=== PATIENT | male | born 1965 | race Asian ===

== ENCOUNTER 2018-04-28 21:38 | Inpatient (IN) | payer MEDICAID ==
[~2018-04-28] VITALS: Ht 180.3 cm; Wt 104.8 kg
[2018-04-28] MEDS ORDERED: PIPERACILLIN/TAZ 3.375G PREMIX 50 ML IV ONE (23:00)
[2018-04-28] MEDS ORDERED: VANCOMYCIN 1 G PREMIX 200 ML IV ONE (23:00)
[2018-04-28 23:32] LABS: HEMATOCRIT. 45.7 % (42.0-52.0); HEMOGLOBIN. 14.9 g/dL (14.0-18.0); MEAN CORPUSCULAR HEMOGLOBIN 27.5 pg (28.0-32.0); MEAN CORPUSCULAR VOLUME 84.7 fL (80.0-94.0); MEAN PLATELET VOLUME 8.9 fl (7.4-10.4); PLATELET 162 x1000/uL (130-400); RED BLOOD CELL COUNT 5.39 mill/uL (4.7-6.1); RED CELL DISTRIBUTION WIDTH 17.8 % (11.6-14.6)
[2018-04-28 23:34] LABS: CHLORIDE 104 mEq/L (98-107)
[2018-04-28 23:36] LABS: INR 1.6; PROTHROMBIN TIME 16.2 sec (9.4-11.6)
[2018-04-28 23:38] LABS: ETHANOL BLOOD < 10 mg/dL
[2018-04-28 23:40] LABS: CLARITY URINE CLOUDY (CLEAR); COLOR URINE ORANGE (YELLOW); KETONES URINE TRACE (NEGATIVE); LEUKOCYTE ESTERASE URINE 1+ (NEGATIVE); NITRITE URINE POSITIVE (NEGATIVE); OCCULT BLOOD URINE 3+ (NEGATIVE); PH URINE 5.5 (4.5-8.0); PROTEIN URINE 4+ (NEGATIVE); SPECIFIC GRAVITY URINE 1.028 (1.005-1.030)
[2018-04-29 00:13] LABS: *AMPHETAMINES SCREEN URINE PRESUMTIVE POSITIVE (NEGATIVE); *BARBITURATES SCREEN URINE NEGATIVE (NEGATIVE); *BENZODIAZEPINES SCREEN URINE NEGATIVE (NEGATIVE)
[2018-04-29 00:14] LABS: METHADONE URINE SCREEN NEGATIVE (NEGATIVE); OPIATES URINE SCREEN NEGATIVE (NEGATIVE); PHENCYCLIDINE URINE SCREEN NEGATIVE (NEGATIVE)
[2018-04-29 00:15] LABS: CANNABINOID URINE SCREEN PRESUMTIVE POSITIVE (NEGATIVE)
[2018-04-29 00:22] LABS: *COCAINE SCREEN URINE NEGATIVE (NEGATIVE)
[2018-04-29 02:03] LABS: PLATELET ESTIMATE NORMAL
[2018-04-29] MEDS: HYDROCODONE/ACETAMINOPHEN 5/325MG TABLET PO PRN (03:27)
[2018-04-29 04:05] VITALS: BP 151/99
[2018-04-29] MEDS ORDERED: IPRATROPIUM/ALBUTEROL 0.5-3(2.5)MG/3ML NEB INH PRN (05:16)
[2018-04-29] MEDS ORDERED: ONDANSETRON HCL 4MG/2ML VIAL IV PRN (05:16)
[2018-04-29] MEDS ORDERED: DEXTROSE 50% WATER 50ML SYRINGE IV PRN (05:30)
[2018-04-29] MEDS ORDERED: PIPERACILLIN/TAZ 3.375G PREMIX 50 ML IV SCH (06:00)
[2018-04-29] MEDS: BLOOD SUGAR DIAGNOSTIC STRIP TEST SCH ×4 (06:44→20:06)
[2018-04-29] MEDS: INSULIN LISPRO 100 UNITS/ML SUBCUT SCH ×4 (06:44→20:17)
[2018-04-29] MEDS: HYDROMORPHONE HCL/PF 2MG/ML CPJ IV PRN ×3 (06:51→20:07)
[2018-04-29 08:00] VITALS: BP 132/90
[2018-04-29] MEDS: AMLODIPINE 10MG TABLET PO SCH (08:48)
[2018-04-29] MEDS: ENOXAPARIN 30MG/0.3ML SYR SUBCUT SCH ×2 (08:49→20:08)
[2018-04-29] MEDS: VANCOMYCIN 1 G PREMIX 200 ML IV SCH ×2 (08:50→20:06)
[2018-04-29] MEDS: ASPIRIN 81MG EC TABLET PO SCH (08:51)
[2018-04-29] MEDS ORDERED: ENOXAPARIN 40MG/0.4ML SYR SUBCUT SCH (09:00)
[2018-04-29 09:08] LABS: CREATINE KINASE MB FRACTION 1.6 ng/mL (0.5-3.6)
[2018-04-29 12:00] VITALS: BP 136/91
[2018-04-29] MEDS: PIPERACILLIN/TAZ 3.375G PREMIX 50 ML IV SCH ×3 (13:31→23:48)
[2018-04-29 15:58] LABS: CREATINE KINASE MB FRACTION 1.2 ng/mL (0.5-3.6)
[2018-04-29 16:00] VITALS: BP 155/98
[2018-04-29 20:00] VITALS: BP 132/85
[2018-04-30] VITALS (7 sets, daily range): BP systolic 133–154; BP diastolic 86–105
[2018-04-30] MEDS: PIPERACILLIN/TAZ 3.375G PREMIX 50 ML IV SCH ×4 (05:18→23:29)
[2018-04-30] MEDS: HYDROMORPHONE HCL/PF 2MG/ML CPJ IV PRN ×4 (05:21→21:31)
[2018-04-30] MEDS: BLOOD SUGAR DIAGNOSTIC STRIP TEST SCH ×4 (06:38→21:21)
[2018-04-30 06:53] LABS: CHLORIDE 102 mEq/L (98-107)
[2018-04-30 06:57] LABS: HEMATOCRIT. 47.2 % (42.0-52.0); HEMOGLOBIN. 15.2 g/dL (14.0-18.0); MEAN CORPUSCULAR HEMOGLOBIN 27.4 pg (28.0-32.0); MEAN CORPUSCULAR VOLUME 85.4 fL (80.0-94.0); MEAN PLATELET VOLUME 9.4 fl (7.4-10.4); PLATELET 146 x1000/uL (130-400); RED BLOOD CELL COUNT 5.53 mill/uL (4.7-6.1); RED CELL DISTRIBUTION WIDTH 18.5 % (11.6-14.6)
[2018-04-30] MEDS: INSULIN LISPRO 100 UNITS/ML SUBCUT SCH ×4 (07:50→21:24)
[2018-04-30] MEDS: VANCOMYCIN 1 G PREMIX 200 ML IV SCH (10:00)
[2018-04-30] MEDS: ASPIRIN 81MG EC TABLET PO SCH (10:00)
[2018-04-30] MEDS: AMLODIPINE 10MG TABLET PO SCH (10:01)
[2018-04-30] MEDS: ENOXAPARIN 30MG/0.3ML SYR SUBCUT SCH ×2 (10:02→21:23)
[2018-04-30 13:04] LABS: PLATELET ESTIMATE NORMAL
[2018-05-01] VITALS: BP 144/85
[2018-05-01 04:00] VITALS: BP 148/93
[2018-05-01] MEDS: PIPERACILLIN/TAZ 3.375G PREMIX 50 ML IV SCH ×3 (05:16→18:55)
[2018-05-01] MEDS: HYDROMORPHONE HCL/PF 2MG/ML CPJ IV PRN ×3 (05:21→17:54)
[2018-05-01] MEDS: VANCOMYCIN 1250MG in DEXTROSE 5% WATER 250ML IV SCH (05:51)
[2018-05-01] MEDS: BLOOD SUGAR DIAGNOSTIC STRIP TEST SCH ×4 (06:33→21:39)
[2018-05-01] MEDS: INSULIN LISPRO 100 UNITS/ML SUBCUT SCH ×4 (07:50→21:00)
[2018-05-01 07:51] VITALS: BP 149/103
[2018-05-01] MEDS: AMLODIPINE 10MG TABLET PO SCH (09:50)
[2018-05-01] MEDS: ENOXAPARIN 30MG/0.3ML SYR SUBCUT SCH ×2 (09:50→21:45)
[2018-05-01] MEDS: ASPIRIN 81MG EC TABLET PO SCH (09:50)
[2018-05-01 11:49] VITALS: BP 146/98
[2018-05-01] MEDS ORDERED: LIDOCAINE HCL/PF 1% 10 MG/ML 5ML VIAL ONE (14:40)
[2018-05-01] MEDS ORDERED: SODIUM BICARBONATE 4% (2.4MEQ) 5ML VIAL IV ONE (14:40)
[2018-05-01 16:38] VITALS: BP 144/103
[2018-05-01 20:00] VITALS: BP 147/91
[2018-05-02] VITALS: BP 151/99
[2018-05-02] MEDS: PIPERACILLIN/TAZ 3.375G PREMIX 50 ML IV SCH ×4 (01:49→17:38)
[2018-05-02] MEDS: VANCOMYCIN 1250MG in DEXTROSE 5% WATER 250ML IV SCH ×2 (01:50→17:39)
[2018-05-02 04:00] VITALS: BP 172/106
[2018-05-02] MEDS: INSULIN LISPRO 100 UNITS/ML SUBCUT SCH ×4 (07:50→21:00)
[2018-05-02] MEDS: BLOOD SUGAR DIAGNOSTIC STRIP TEST SCH ×3 (07:54→21:15)
[2018-05-02 08:00] VITALS: BP 172/106
[2018-05-02] MEDS: ENOXAPARIN 30MG/0.3ML SYR SUBCUT SCH ×2 (09:00→21:17)
[2018-05-02] MEDS: ASPIRIN 81MG EC TABLET PO SCH (09:00)
[2018-05-02] MEDS: AMLODIPINE 10MG TABLET PO SCH (09:09)
[2018-05-02] MEDS: HYDROMORPHONE HCL/PF 2MG/ML CPJ IV PRN (11:13)
[2018-05-02 12:00] VITALS: BP 156/92
[2018-05-02 16:00] VITALS: BP 141/88
[2018-05-02] MEDS: HYDROCODONE/ACETAMINOPHEN 5/325MG TABLET PO PRN (17:48)
[2018-05-02 20:00] VITALS: BP 136/88
[2018-05-03] VITALS: BP 154/100
[2018-05-03] MEDS: PIPERACILLIN/TAZ 3.375G PREMIX 50 ML IV SCH ×5 (00:42→23:06)
[2018-05-03 04:00] VITALS: BP 150/80
[2018-05-03] MEDS: HYDROMORPHONE HCL/PF 2MG/ML CPJ IV PRN ×4 (07:07→23:07)
[2018-05-03] MEDS: INSULIN LISPRO 100 UNITS/ML SUBCUT SCH ×4 (07:35→21:26)
[2018-05-03] MEDS: BLOOD SUGAR DIAGNOSTIC STRIP TEST SCH ×4 (07:35→21:15)
[2018-05-03] MEDS: ASPIRIN 81MG EC TABLET PO SCH (07:40)
[2018-05-03] MEDS: HYDROCODONE/ACETAMINOPHEN 5/325MG TABLET PO PRN (07:41)
[2018-05-03] MEDS: AMLODIPINE 10MG TABLET PO SCH (07:41)
[2018-05-03] MEDS: ENOXAPARIN 30MG/0.3ML SYR SUBCUT SCH ×2 (07:42→21:25)
[2018-05-03 08:00] VITALS: BP 160/100
[2018-05-03 12:00] VITALS: BP 139/87
[2018-05-03] MEDS: VANCOMYCIN 1250MG in DEXTROSE 5% WATER 250ML IV SCH (14:16)
[2018-05-03 16:00] VITALS: BP 134/85
[2018-05-03 20:00] VITALS: BP 144/92
[2018-05-04] VITALS: BP 147/93
[2018-05-04 04:02] VITALS: BP 145/90
[2018-05-04] MEDS: HYDROMORPHONE HCL/PF 2MG/ML CPJ IV PRN ×3 (05:10→15:09)
[2018-05-04] MEDS: PIPERACILLIN/TAZ 3.375G PREMIX 50 ML IV SCH ×2 (05:10→11:55)
[2018-05-04] MEDS: VANCOMYCIN 1250MG in DEXTROSE 5% WATER 250ML IV SCH (06:22)
[2018-05-04] MEDS: BLOOD SUGAR DIAGNOSTIC STRIP TEST SCH ×4 (06:22→20:55)
[2018-05-04] MEDS: DIPHENHYDRAMINE 50MG/ML VIAL IV PRN (07:15)
[2018-05-04 07:21] LABS: HEMATOCRIT. 42.2 % (42.0-52.0); HEMOGLOBIN. 13.8 g/dL (14.0-18.0); MEAN CORPUSCULAR VOLUME 82.8 fL (80.0-94.0); MEAN PLATELET VOLUME 8.9 fl (7.4-10.4); PLATELET 204 x1000/uL (130-400); RED CELL DISTRIBUTION WIDTH 18.2 % (11.6-14.6)
[2018-05-04 07:46] VITALS: BP 146/96
[2018-05-04] MEDS: INSULIN LISPRO 100 UNITS/ML SUBCUT SCH ×4 (07:50→20:55)
[2018-05-04] MEDS: ASPIRIN 81MG EC TABLET PO SCH (08:02)
[2018-05-04] MEDS: AMLODIPINE 10MG TABLET PO SCH (08:02)
[2018-05-04] MEDS: ENOXAPARIN 30MG/0.3ML SYR SUBCUT SCH ×2 (08:03→20:55)
[2018-05-04] MEDS: HYDROMORPHONE HCL/PF 2MG/ML CPJ IV NR ×2 (10:00→11:55)
[2018-05-04 12:00] VITALS: BP 125/81
[2018-05-04 12:47] LABS: PLATELET ESTIMATE NORMAL
[2018-05-04] MEDS ORDERED: CEFTRIAXONE 2 G PREMIX 50 ML IV SCH (15:00)
[2018-05-04] MEDS: CEFTRIAXONE 2 G in DEXTROSE 5% WATER 50 ML IV SCH (15:08)
[2018-05-04 16:12] VITALS: BP 135/90
[2018-05-04 20:00] VITALS: BP 129/80
[2018-05-05] VITALS: BP 147/82
[2018-05-05] MEDS: VANCOMYCIN 1250MG in DEXTROSE 5% WATER 250ML IV SCH ×2 (00:36→17:04)
[2018-05-05] MEDS: HYDROMORPHONE HCL/PF 2MG/ML CPJ IV PRN ×4 (00:39→17:04)
[2018-05-05 04:00] VITALS: BP 144/89
[2018-05-05] MEDS: BLOOD SUGAR DIAGNOSTIC STRIP TEST SCH ×4 (06:24→20:34)
[2018-05-05] MEDS: INSULIN LISPRO 100 UNITS/ML SUBCUT SCH ×4 (07:50→20:34)
[2018-05-05 08:00] VITALS: BP 154/89
[2018-05-05] MEDS: AMLODIPINE 10MG TABLET PO SCH (08:16)
[2018-05-05] MEDS: ENOXAPARIN 30MG/0.3ML SYR SUBCUT SCH ×2 (08:16→20:34)
[2018-05-05] MEDS: ASPIRIN 81MG EC TABLET PO SCH (08:16)
[2018-05-05 10:14] LABS: HEMATOCRIT. 42.6 % (42.0-52.0); HEMOGLOBIN. 13.9 g/dL (14.0-18.0); MEAN CORPUSCULAR HEMOGLOBIN 27.1 pg (28.0-32.0); MEAN CORPUSCULAR VOLUME 82.9 fL (80.0-94.0); MEAN PLATELET VOLUME 9.1 fl (7.4-10.4); PLATELET 233 x1000/uL (130-400); RED BLOOD CELL COUNT 5.14 mill/uL (4.7-6.1); RED CELL DISTRIBUTION WIDTH 18.7 % (11.6-14.6)
[2018-05-05 11:37] VITALS: BP 144/89
[2018-05-05] MEDS: DOCUSATE SODIUM 100MG CAPSULE PO PRN (11:47)
[2018-05-05] MEDS: ACETAMINOPHEN 325MG TABLET PO PRN (11:47)
[2018-05-05] MEDS: CEFTRIAXONE 2 G in DEXTROSE 5% WATER 50 ML IV SCH (16:07)
[2018-05-05 19:05] LABS: PLATELET ESTIMATE NORMAL
[2018-05-05 20:00] VITALS: BP 138/80
[2018-05-05] MEDS: HYDROCODONE/ACETAMINOPHEN 5/325MG TABLET PO PRN (23:09)
[2018-05-06] VITALS: BP 146/82
[2018-05-06] MEDS: HYDROMORPHONE HCL/PF 2MG/ML CPJ IV PRN ×2 (02:46→21:34)
[2018-05-06 04:00] VITALS: BP 150/79
[2018-05-06] MEDS: BLOOD SUGAR DIAGNOSTIC STRIP TEST SCH ×4 (07:25→21:35)
[2018-05-06] MEDS: INSULIN LISPRO 100 UNITS/ML SUBCUT SCH ×4 (07:45→21:35)
[2018-05-06 08:00] VITALS: BP 155/97
[2018-05-06] MEDS: AMLODIPINE 10MG TABLET PO SCH (09:40)
[2018-05-06] MEDS: ASPIRIN 81MG EC TABLET PO SCH (09:40)
[2018-05-06] MEDS: ENOXAPARIN 30MG/0.3ML SYR SUBCUT SCH ×2 (09:40→21:34)
[2018-05-06 12:00] VITALS: BP 151/91
[2018-05-06] MEDS: VANCOMYCIN 1250MG in DEXTROSE 5% WATER 250ML IV SCH (13:05)
[2018-05-06 13:26] LABS: HEMATOCRIT. 42.4 % (42.0-52.0); MEAN CORPUSCULAR HEMOGLOBIN 27.2 pg (28.0-32.0); MEAN CORPUSCULAR VOLUME 82.7 fL (80.0-94.0); MEAN PLATELET VOLUME 8.5 fl (7.4-10.4); PLATELET 246 x1000/uL (130-400); RED BLOOD CELL COUNT 5.13 mill/uL (4.7-6.1); RED CELL DISTRIBUTION WIDTH 17.9 % (11.6-14.6)
[2018-05-06 16:00] VITALS: BP 150/90
[2018-05-06] MEDS: CEFTRIAXONE 2 G in DEXTROSE 5% WATER 50 ML IV SCH (16:18)
[2018-05-06 17:03] LABS: PLATELET ESTIMATE NORMAL
[2018-05-06 19:35] VITALS: BP 149/92
[2018-05-06] MEDS: CLONIDINE 0.1MG TABLET PO PRN (21:34)
[2018-05-07] VITALS: BP 150/88
[2018-05-07] MEDS: ACETAMINOPHEN 325MG TABLET PO PRN (00:53)
[2018-05-07 05:26] VITALS: BP 147/86
[2018-05-07] MEDS: BLOOD SUGAR DIAGNOSTIC STRIP TEST SCH ×4 (06:48→21:57)
[2018-05-07] MEDS: VANCOMYCIN 1250MG in DEXTROSE 5% WATER 250ML IV SCH (06:48)
[2018-05-07] MEDS: HYDROMORPHONE HCL/PF 2MG/ML CPJ IV PRN ×3 (07:11→21:57)
[2018-05-07 07:26] LABS: HEMATOCRIT. 41.3 % (42.0-52.0); HEMOGLOBIN. 13.6 g/dL (14.0-18.0); MEAN CORPUSCULAR HEMOGLOBIN 27.3 pg (28.0-32.0); MEAN CORPUSCULAR VOLUME 82.7 fL (80.0-94.0); MEAN PLATELET VOLUME 8.7 fl (7.4-10.4); PLATELET 294 x1000/uL (130-400); RED BLOOD CELL COUNT 4.99 mill/uL (4.7-6.1); RED CELL DISTRIBUTION WIDTH 17.7 % (11.6-14.6)
[2018-05-07 07:40] VITALS: BP 154/96
[2018-05-07] MEDS: INSULIN LISPRO 100 UNITS/ML SUBCUT SCH ×4 (07:50→21:55)
[2018-05-07] MEDS: ASPIRIN 81MG EC TABLET PO SCH (09:23)
[2018-05-07] MEDS: AMLODIPINE 10MG TABLET PO SCH (09:23)
[2018-05-07] MEDS: ENOXAPARIN 30MG/0.3ML SYR SUBCUT SCH ×2 (09:24→21:57)
[2018-05-07 12:07] VITALS: BP 149/93
[2018-05-07 14:22] LABS: ATYPICAL LYMPHOCYTES 2
[2018-05-07 14:23] LABS: PLATELET ESTIMATE NORMAL
[2018-05-07] MEDS: METRONIDAZOLE 500 MG PREMIX 100 ML IV SCH (14:48)
[2018-05-07 16:00] VITALS: BP 148/93
[2018-05-07] MEDS: CEFTRIAXONE 2 G in DEXTROSE 5% WATER 50 ML IV SCH (16:49)
[2018-05-07 20:30] VITALS: BP 136/79
[2018-05-07] MEDS: VANCOMYCIN 1,500 MG in DEXT 5% WATER 250 ML IV SCH (21:57)
[2018-05-08] MEDS: METRONIDAZOLE 500 MG PREMIX 100 ML IV SCH ×3 (00:01→14:07)
[2018-05-08 00:21] VITALS: BP 142/94
[2018-05-08] MEDS: ACETAMINOPHEN 325MG TABLET PO PRN (01:00)
[2018-05-08] MEDS: CLONIDINE 0.1MG TABLET PO PRN (01:00)
[2018-05-08 04:41] VITALS: BP 137/84
[2018-05-08 05:27] LABS: HIV SCREEN 4G Non Reactive (Non Reactive)
[2018-05-08] MEDS: BLOOD SUGAR DIAGNOSTIC STRIP TEST SCH ×4 (06:20→21:00)
[2018-05-08] MEDS ORDERED: NORMAL SALINE 0.9% 10 ML SYR ONE ×2 (06:36→06:43)
[2018-05-08] MEDS ORDERED: BUPIVACAINE HCL/PF 0.25% (2.5MG/ML) 10ML ONE (06:36)
[2018-05-08] MEDS ORDERED: LIDOCAINE HCL/PF 1% 10 MG/ML 5ML VIAL ONE ×2 (06:36→07:11)
[2018-05-08] MEDS ORDERED: BACITRACIN 50,000 UNITS/VIAL ONE ×2 (06:37→06:43)
[2018-05-08] MEDS ORDERED: MIDAZOLAM HCL 2 MG/2 ML VIAL ONE (07:11)
[2018-05-08] MEDS ORDERED: METOCLOPRAMIDE HCL 10MG/2ML VIAL ONE (07:11)
[2018-05-08] MEDS ORDERED: FENTANYL CITRATE/PF 50MCG/ML 2ML VIAL ONE ×2 (07:11→07:46)
[2018-05-08] MEDS ORDERED: SUCCINYLCHOLINE CHLORIDE 200MG/10ML VIAL IV ONE (07:11)
[2018-05-08] MEDS ORDERED: GLYCOPYRROLATE 0.2 MG/ML 2ML VIAL ONE (07:11)
[2018-05-08] MEDS ORDERED: PROPOFOL 200MG/20ML VIAL IV ONE (07:11)
[2018-05-08] MEDS ORDERED: ONDANSETRON HCL 4MG/2ML VIAL ONE (07:11)
[2018-05-08] MEDS: INSULIN LISPRO 100 UNITS/ML SUBCUT SCH ×4 (07:14→21:00)
[2018-05-08] MEDS ORDERED: SODIUM CHLORIDE 0.9% 1,000 ML IV ONE (08:16)
[2018-05-08] MEDS ORDERED: BUPIVACAINE HCL/EPINEPHRINE/PF 0.5%/0.0005 10ML ONE (08:18)
[2018-05-08] MEDS ORDERED: HYDROMORPHONE HCL/PF 2MG/ML CPJ IV PRN (08:30)
[2018-05-08] MEDS ORDERED: ONDANSETRON HCL 4MG/2ML VIAL IV PRN (08:30)
[2018-05-08] MEDS: ENOXAPARIN 30MG/0.3ML SYR SUBCUT SCH ×2 (09:00→20:29)
[2018-05-08] MEDS: AMLODIPINE 10MG TABLET PO SCH ×2 (09:00→12:13)
[2018-05-08] MEDS: ASPIRIN 81MG EC TABLET PO SCH (09:00)
[2018-05-08 11:24] VITALS: BP 154/98
[2018-05-08] MEDS: HYDROMORPHONE HCL/PF 2MG/ML CPJ IV PRN (14:31)
[2018-05-08] MEDS: CEFTRIAXONE 2 G in DEXTROSE 5% WATER 50 ML IV SCH (15:18)
[2018-05-08] MEDS: VANCOMYCIN 1,500 MG in DEXT 5% WATER 250 ML IV SCH (15:56)
[2018-05-08 15:57] VITALS: BP 136/83
[2018-05-08 17:35] LABS: BASOPHILS % 0.6 % (0.0-2.0); EOSINOPHILS % 0.3 % (0.0-5.0); HEMATOCRIT. 38.7 % (42.0-52.0); HEMOGLOBIN. 12.7 g/dL (14.0-18.0); LYMPHOCYTES % 8.2 % (20.0-50.0); MEAN CORPUSCULAR HEMOGLOBIN 27.4 pg (28.0-32.0); MEAN CORPUSCULAR VOLUME 83.4 fL (80.0-94.0); MEAN PLATELET VOLUME 8.4 fl (7.4-10.4); MONOCYTES % 7.4 % (2.0-8.0); NEUTROPHILS % 83.5 % (40.0-76.0); PLATELET 339 x1000/uL (130-400); RED BLOOD CELL COUNT 4.64 mill/uL (4.7-6.1); RED CELL DISTRIBUTION WIDTH 17.9 % (11.6-14.6)
[2018-05-08 19:31] VITALS: BP 122/75
[2018-05-08] MEDS: HYDROCODONE/ACETAMINOPHEN 5/325MG TABLET PO PRN (23:42)
[2018-05-09] MEDS: METRONIDAZOLE 500 MG PREMIX 100 ML IV SCH ×4 (00:07→22:43)
[2018-05-09 00:15] VITALS: BP 129/81
[2018-05-09 04:00] VITALS: BP 130/83
[2018-05-09 07:08] LABS: BASOPHILS % 0.6 % (0.0-2.0); EOSINOPHILS % 0.3 % (0.0-5.0); HEMATOCRIT. 38.8 % (42.0-52.0); HEMOGLOBIN. 12.7 g/dL (14.0-18.0); LYMPHOCYTES % 7.5 % (20.0-50.0); MEAN CORPUSCULAR HEMOGLOBIN 27.4 pg (28.0-32.0); MEAN CORPUSCULAR VOLUME 83.6 fL (80.0-94.0); MEAN PLATELET VOLUME 8.4 fl (7.4-10.4); MONOCYTES % 6.9 % (2.0-8.0); NEUTROPHILS % 84.7 % (40.0-76.0); PLATELET 357 x1000/uL (130-400); RED BLOOD CELL COUNT 4.64 mill/uL (4.7-6.1); RED CELL DISTRIBUTION WIDTH 17.8 % (11.6-14.6)
[2018-05-09] MEDS: BLOOD SUGAR DIAGNOSTIC STRIP TEST SCH ×4 (07:20→21:00)
[2018-05-09] MEDS: INSULIN LISPRO 100 UNITS/ML SUBCUT SCH ×4 (07:50→21:00)
[2018-05-09 08:00] VITALS: BP_SYST 156; BP_DIAS 101; BP_DIAS 95
[2018-05-09] MEDS: AMLODIPINE 10MG TABLET PO SCH (09:39)
[2018-05-09] MEDS: ASPIRIN 81MG EC TABLET PO SCH (09:39)
[2018-05-09] MEDS: DOCUSATE SODIUM 100MG CAPSULE PO PRN ×2 (09:40→18:16)
[2018-05-09] MEDS: HYDROCODONE/ACETAMINOPHEN 5/325MG TABLET PO PRN ×2 (09:41→18:16)
[2018-05-09] MEDS: VANCOMYCIN 1,500 MG in DEXT 5% WATER 250 ML IV SCH (09:42)
[2018-05-09] MEDS: ENOXAPARIN 30MG/0.3ML SYR SUBCUT SCH ×2 (09:46→21:00)
[2018-05-09] MEDS ORDERED: HYDROMORPHONE HCL 2MG TABLET PO PRN (12:45)
[2018-05-09 12:49] VITALS: BP 134/87
[2018-05-09] MEDS ORDERED: HYDROMORPHONE HCL/PF 2MG/ML CPJ IV PRN ×2 (13:00→13:34)
[2018-05-09] MEDS: HYDROMORPHONE HCL/PF 2MG/ML CPJ IV PRN (13:48)
[2018-05-09] MEDS: CEFTRIAXONE 2 G in DEXTROSE 5% WATER 50 ML IV SCH (15:22)
[2018-05-09 16:00] VITALS: BP 136/94
[2018-05-09 20:00] VITALS: BP 141/76
[2018-05-09] MEDS: NYSTATIN POWDER 15GM TOP SCH (21:00)
[2018-05-10] VITALS: BP 135/81
[2018-05-10] MEDS: VANCOMYCIN 1,500 MG in DEXT 5% WATER 250 ML IV SCH (03:27)
[2018-05-10 04:00] VITALS: BP 151/83
[2018-05-10] MEDS: MORPHINE SULFATE 4 MG/ML CPJ (NOT FOR IM USE) IV PRN (04:43)
[2018-05-10] MEDS: METRONIDAZOLE 500 MG PREMIX 100 ML IV SCH ×3 (06:06→23:23)
[2018-05-10] MEDS: BLOOD SUGAR DIAGNOSTIC STRIP TEST SCH ×4 (06:43→21:22)
[2018-05-10] MEDS: INSULIN LISPRO 100 UNITS/ML SUBCUT SCH ×4 (06:44→21:22)
[2018-05-10 08:00] VITALS: BP 135/84
[2018-05-10] MEDS: ASPIRIN 81MG EC TABLET PO SCH (09:14)
[2018-05-10] MEDS: AMLODIPINE 10MG TABLET PO SCH (09:14)
[2018-05-10] MEDS: NYSTATIN POWDER 15GM TOP SCH ×2 (09:15→21:23)
[2018-05-10] MEDS: ENOXAPARIN 30MG/0.3ML SYR SUBCUT SCH ×2 (09:15→21:22)
[2018-05-10 12:00] VITALS: BP 139/84
[2018-05-10] MEDS: DOCUSATE SODIUM 100MG CAPSULE PO PRN (13:38)
[2018-05-10] MEDS: CEFTRIAXONE 2 G in DEXTROSE 5% WATER 50 ML IV SCH (15:19)
[2018-05-10 16:00] VITALS: BP 145/84
[2018-05-10] MEDS: HYDROCODONE/ACETAMINOPHEN 5/325MG TABLET PO PRN (17:15)
[2018-05-10 20:12] VITALS: BP 132/77
[2018-05-10] MEDS: VANCOMYCIN 1,750 MG in DEXT 5% WATER 500 ML IV SCH (21:22)
[2018-05-11] VITALS (7 sets, daily range): BP systolic 127–168; BP diastolic 75–89
[2018-05-11] MEDS: METRONIDAZOLE 500 MG PREMIX 100 ML IV SCH ×3 (06:05→21:45)
[2018-05-11] MEDS: INSULIN LISPRO 100 UNITS/ML SUBCUT SCH ×4 (07:50→21:57)
[2018-05-11] MEDS: BLOOD SUGAR DIAGNOSTIC STRIP TEST SCH ×4 (07:52→21:57)
[2018-05-11] MEDS: AMLODIPINE 10MG TABLET PO SCH (08:23)
[2018-05-11] MEDS: ASPIRIN 81MG EC TABLET PO SCH (08:23)
[2018-05-11] MEDS: NYSTATIN POWDER 15GM TOP SCH ×2 (08:24→21:45)
[2018-05-11] MEDS: ENOXAPARIN 30MG/0.3ML SYR SUBCUT SCH ×2 (08:26→21:45)
[2018-05-11] MEDS: MORPHINE SULFATE 4 MG/ML CPJ (NOT FOR IM USE) IV PRN (10:07)
[2018-05-11 13:18] LABS: BASOPHILS % 0.4 % (0.0-2.0); EOSINOPHILS % 0.2 % (0.0-5.0); HEMATOCRIT. 33.6 % (42.0-52.0); HEMOGLOBIN. 11.2 g/dL (14.0-18.0); LYMPHOCYTES % 7.3 % (20.0-50.0); MEAN CORPUSCULAR HEMOGLOBIN 27.9 pg (28.0-32.0); MEAN CORPUSCULAR VOLUME 83.6 fL (80.0-94.0); MEAN PLATELET VOLUME 8.2 fl (7.4-10.4); MONOCYTES % 7.6 % (2.0-8.0); NEUTROPHILS % 84.5 % (40.0-76.0); PLATELET 484 x1000/uL (130-400); RED BLOOD CELL COUNT 4.02 mill/uL (4.7-6.1); RED CELL DISTRIBUTION WIDTH 18.3 % (11.6-14.6)
[2018-05-11] MEDS: CEFTRIAXONE 2 G in DEXTROSE 5% WATER 50 ML IV SCH (16:25)
[2018-05-11] MEDS: VANCOMYCIN 1,750 MG in DEXT 5% WATER 500 ML IV SCH (17:08)
[2018-05-11] MEDS: HYDROCODONE/ACETAMINOPHEN 5/325MG TABLET PO PRN (17:15)
[2018-05-11] MEDS: ACETAMINOPHEN 325MG TABLET PO PRN (23:55)
[2018-05-12] MEDS: CLONIDINE 0.1MG TABLET PO PRN
[2018-05-12 04:33] VITALS: BP 139/81
[2018-05-12] MEDS: METRONIDAZOLE 500 MG PREMIX 100 ML IV SCH ×3 (05:59→22:49)
[2018-05-12] MEDS: BLOOD SUGAR DIAGNOSTIC STRIP TEST SCH ×4 (06:40→21:34)
[2018-05-12] MEDS: INSULIN LISPRO 100 UNITS/ML SUBCUT SCH ×4 (07:42→21:34)
[2018-05-12 07:51] VITALS: BP 149/81
[2018-05-12] MEDS: AMLODIPINE 10MG TABLET PO SCH (09:25)
[2018-05-12] MEDS: ASPIRIN 81MG EC TABLET PO SCH (09:25)
[2018-05-12] MEDS: VANCOMYCIN 1,750 MG in DEXT 5% WATER 500 ML IV SCH (09:25)
[2018-05-12] MEDS: MORPHINE SULFATE 4 MG/ML CPJ (NOT FOR IM USE) IV PRN ×2 (09:26→15:30)
[2018-05-12] MEDS: NYSTATIN POWDER 15GM TOP SCH ×2 (09:27→20:46)
[2018-05-12] MEDS: ENOXAPARIN 30MG/0.3ML SYR SUBCUT SCH ×2 (09:27→20:46)
[2018-05-12] MEDS: DIPHENHYDRAMINE 50MG/ML VIAL IV PRN (12:41)
[2018-05-12] MEDS ORDERED: CEFTRIAXONE 2 G in DEXTROSE 5% WATER 50 ML IV SCH (14:00)
[2018-05-12] MEDS: CEFTRIAXONE 2 G in DEXTROSE 5% WATER 50 ML IV SCH (14:09)
[2018-05-12 16:12] VITALS: BP 117/72
[2018-05-12 19:46] VITALS: BP 116/70
[2018-05-12] MEDS: ACETAMINOPHEN 325MG TABLET PO PRN (20:47)
[2018-05-12 23:21] VITALS: BP 144/80
[2018-05-13] MEDS: VANCOMYCIN 1,750 MG in DEXT 5% WATER 500 ML IV SCH ×2 (02:56→18:05)
[2018-05-13 04:19] VITALS: BP 139/87
[2018-05-13] MEDS: METRONIDAZOLE 500 MG PREMIX 100 ML IV SCH ×3 (06:23→21:14)
[2018-05-13] MEDS: BLOOD SUGAR DIAGNOSTIC STRIP TEST SCH ×4 (06:41→21:00)
[2018-05-13] MEDS: INSULIN LISPRO 100 UNITS/ML SUBCUT SCH ×4 (07:50→22:19)
[2018-05-13 08:00] VITALS: BP 132/86
[2018-05-13] MEDS: MORPHINE SULFATE 4 MG/ML CPJ (NOT FOR IM USE) IV PRN ×2 (09:16→18:13)
[2018-05-13] MEDS: NYSTATIN POWDER 15GM TOP SCH ×2 (09:16→21:14)
[2018-05-13] MEDS: ASPIRIN 81MG EC TABLET PO SCH (09:17)
[2018-05-13] MEDS: ENOXAPARIN 30MG/0.3ML SYR SUBCUT SCH ×2 (09:17→21:14)
[2018-05-13] MEDS: AMLODIPINE 10MG TABLET PO SCH (09:17)
[2018-05-13 10:05] LABS: BASOPHILS % 0.7 % (0.0-2.0); EOSINOPHILS % 0.2 % (0.0-5.0); HEMATOCRIT. 32.9 % (42.0-52.0); HEMOGLOBIN. 10.9 g/dL (14.0-18.0); LYMPHOCYTES % 7.1 % (20.0-50.0); MEAN CORPUSCULAR HEMOGLOBIN 27.7 pg (28.0-32.0); MEAN CORPUSCULAR VOLUME 83.6 fL (80.0-94.0); MEAN PLATELET VOLUME 8.2 fl (7.4-10.4); MONOCYTES % 7.4 % (2.0-8.0); NEUTROPHILS % 84.6 % (40.0-76.0); PLATELET 546 x1000/uL (130-400); RED BLOOD CELL COUNT 3.93 mill/uL (4.7-6.1); RED CELL DISTRIBUTION WIDTH 18.4 % (11.6-14.6)
[2018-05-13 12:00] VITALS: BP 136/80
[2018-05-13 14:22] LABS: CHLORIDE 96 mEq/L (98-107)
[2018-05-13] MEDS: CEFTRIAXONE 2 G in DEXTROSE 5% WATER 50 ML IV SCH (15:19)
[2018-05-13 16:00] VITALS: BP 115/71
[2018-05-13 20:00] VITALS: BP 125/79
[2018-05-13] MEDS ORDERED: POTASSIUM CHLORIDE 20MEQ TABLET SR PO NR (21:55)
[2018-05-14] VITALS: BP 133/83
[2018-05-14 04:00] VITALS: BP 141/93
[2018-05-14] MEDS: BLOOD SUGAR DIAGNOSTIC STRIP TEST SCH ×3 (06:21→17:20)
[2018-05-14] MEDS: METRONIDAZOLE 500 MG PREMIX 100 ML IV SCH ×2 (06:21→14:23)
[2018-05-14] MEDS: INSULIN LISPRO 100 UNITS/ML SUBCUT SCH ×3 (07:45→19:12)
[2018-05-14 08:00] VITALS: BP 156/93
[2018-05-14] MEDS: AMLODIPINE 10MG TABLET PO SCH (08:39)
[2018-05-14] MEDS: ASPIRIN 81MG EC TABLET PO SCH (08:39)
[2018-05-14] MEDS: MORPHINE SULFATE 4 MG/ML CPJ (NOT FOR IM USE) IV PRN ×2 (08:40→13:37)
[2018-05-14] MEDS: ENOXAPARIN 30MG/0.3ML SYR SUBCUT SCH (08:41)
[2018-05-14] MEDS: NYSTATIN POWDER 15GM TOP SCH (08:41)
[2018-05-14 11:43] LABS: BASOPHILS % 0.9 % (0.0-2.0); EOSINOPHILS % 0.8 % (0.0-5.0); HEMATOCRIT. 32.2 % (42.0-52.0); HEMOGLOBIN. 10.5 g/dL (14.0-18.0); LYMPHOCYTES % 7.5 % (20.0-50.0); MEAN CORPUSCULAR HEMOGLOBIN 27.4 pg (28.0-32.0); MEAN CORPUSCULAR VOLUME 84.1 fL (80.0-94.0); MEAN PLATELET VOLUME 8.2 fl (7.4-10.4); MONOCYTES % 7.9 % (2.0-8.0); NEUTROPHILS % 82.9 % (40.0-76.0); PLATELET 527 x1000/uL (130-400); RED BLOOD CELL COUNT 3.83 mill/uL (4.7-6.1); RED CELL DISTRIBUTION WIDTH 18.1 % (11.6-14.6)
[2018-05-14 12:47] VITALS: BP 143/89
[2018-05-14] MEDS: VANCOMYCIN 1,750 MG in DEXT 5% WATER 500 ML IV SCH (12:54)
[2018-05-14] MEDS: CEFTRIAXONE 2 G in DEXTROSE 5% WATER 50 ML IV SCH (14:00)
[2018-05-14 16:00] VITALS: BP 146/88
[2018-05-14] MEDS: ACETAMINOPHEN 325MG TABLET PO PRN (18:56)
[2018-05-14 19:29] VITALS: BP 132/77
== END 2018-05-14 20:50 | DRG 710 ==
LOC: ER 21:38 → SUPCPDRO 04-29 00:38 → 6WST 04-29 00:46 → ENRESERV 04-29 03:06
PROVIDERS: ADMIT Hospitalist; ATTEND Hospitalist
PROC: 02HV33Z Insertion of Infusion Device into Superior Vena Cava, Percutaneous Approach (ICD-10-PCS; 2018-05-01)
PROC: B5181ZA Fluoroscopy of Superior Vena Cava using Low Osmolar Contrast, Guidance (ICD-10-PCS; 2018-05-01)
PROC: B548ZZA Ultrasonography of Superior Vena Cava, Guidance (ICD-10-PCS; 2018-05-01)
PROC: 0QDR0ZZ Extraction of Left Toe Phalanx, Open Approach (ICD-10-PCS; 2018-05-01)
PROC: 0QDP0ZZ Extraction of Left Metatarsal, Open Approach (ICD-10-PCS; 2018-05-01)
PROC: 0JBR0ZZ Excision of Left Foot Subcutaneous Tissue and Fascia, Open Approach (ICD-10-PCS; 2018-05-04)
PROC: 0Y6N0Z9 Detachment at Left Foot, Partial 1st Ray, Open Approach (ICD-10-PCS; principal; 2018-05-08 07:00)
DX: A41.02 Sepsis due to Methicillin resistant Staphylococcus aureus (principal); E43 Unspecified severe protein-calorie malnutrition; N17.9 Acute kidney failure, unspecified; A04.72 Enterocolitis due to Clostridium difficile, not specified as recurrent; I50.9 Heart failure, unspecified; I11.0 Hypertensive heart disease with heart failure; E11.52 Type 2 diabetes mellitus with diabetic peripheral angiopathy with gangrene; E11.42 Type 2 diabetes mellitus with diabetic polyneuropathy; E11.69 Type 2 diabetes mellitus with other specified complication; N39.0 Urinary tract infection, site not specified; F15.10 Other stimulant abuse, uncomplicated; I25.10 Atherosclerotic heart disease of native coronary artery without angina pectoris; E11.621 Type 2 diabetes mellitus with foot ulcer; D63.8 Anemia in other chronic diseases classified elsewhere; F17.200 Nicotine dependence, unspecified, uncomplicated; I34.0 Nonrheumatic mitral (valve) insufficiency; I45.81 Long QT syndrome; L97.529 Non-pressure chronic ulcer of other part of left foot with unspecified severity; M86.8X7 Other osteomyelitis, ankle and foot; Z83.3 Family history of diabetes mellitus; Z79.4 Long term (current) use of insulin; Z89.511 Acquired absence of right leg below knee
CPT/HCPCS: 36415; 36569; 71045; 73610; 73630; 73721; 76937; 77001; 80048; 80053; 80202; 80305; 81003; 82550; 82553; 82962; 83605; 83690; 83880; 84145; 84484; 85025; 85610; 85651; 86140; 87040; 87070; 87075; 87077; 87086; 87186; 87205; 88305; 88311; 93005; 93306; 93923; 93971; 96365; 96366; 96367; 97110; 97162; 97164; 97530; 97535; 99291; A4216; C1725; G0482; J0171; J0330; J0696; J1170; J1200; J1650; J1815; J2250; J2270; J2405; J2543; J2704; J2765; J3010; J3370; J3490; J7040; J7050; J7060

== ENCOUNTER 2019-01-12 12:24 | Inpatient (IN) | payer SELFPAY ==
[~2019-01-12] VITALS: Ht 180.3 cm; Wt 113.9 kg
[2019-01-12 19:37] LABS: BASOPHILS % 1.3 % (0.0-2.0); EOSINOPHILS % 2.1 % (0.0-5.0); HEMOGLOBIN. 15.3 g/dL (14.0-18.0); LYMPHOCYTES % 35.4 % (20.0-50.0); MEAN CORPUSCULAR HEMOGLOBIN 27.8 pg (28.0-32.0); MEAN CORPUSCULAR VOLUME 89.1 fL (80.0-94.0); MEAN PLATELET VOLUME 8.4 fl (7.4-10.4); NEUTROPHILS % 54.2 % (40.0-76.0); PLATELET 198 x1000/uL (130-400); RED CELL DISTRIBUTION WIDTH 19.8 % (11.6-14.6)
[2019-01-12 19:39] LABS: BG BASE EXCESS -6.6 mmol/L (-2.0-2.0); BG CARBOXYHEMOGLOBIN 1.7 % (0.5-1.5); BG DEOXYHEMOGLOBIN 1.3 % (0.0-5.0); BG FRACTION INSPIRED OXYGEN 36; BG HCO3 ACT 14.7 mmol/L (22.0-26.0); BG METHEMOGLOBIN 0.5 % (0.0-1.5); BG OXYGEN SATURATION 98.7 % (92.0-98.5); BG OXYHEMOGLOBIN 96.5 % (94.0-97.0); BG PCO2 21.4 mmHg (35.0-45.0); BG PH 7.454 (7.350-7.450); BG PO2 126.3 mmHg (75.0-100.0); BG SAMPLE SITE LEFT BRACHIAL; BG VENT MODE NASAL CANNULA
[2019-01-12 19:43] LABS: CHLORIDE 109 mEq/L (98-107)
[2019-01-12 19:45] LABS: INR 1.2; PARTIAL THROMBOPLASTIN TIME 28.8 sec (23.4-31.0); PROTHROMBIN TIME 11.6 sec (9.1-11.1)
[2019-01-12] MEDS ORDERED: ASPIRIN 81MG TABLET PO ONE (20:15)
[2019-01-12] MEDS ORDERED: NITROGLYCERIN 0.4MG TABLET SL SL ONE (20:15)
[2019-01-12] MEDS ORDERED: FUROSEMIDE 40MG/4ML VIAL IVP NR (20:30)
[2019-01-12] MEDS ORDERED: DIPHENHYDRAMINE 50MG/ML VIAL IV PRN (21:30)
[2019-01-12] MEDS ORDERED: DOCUSATE SODIUM 100MG CAPSULE PO PRN (21:30)
[2019-01-12] MEDS ORDERED: DEXTROSE 50% WATER 50ML SYRINGE IV PRN ×2 (21:30)
[2019-01-12] MEDS ORDERED: GUAIFENESIN 200MG/10ML SUGAR FREE UDC PO PRN (21:30)
[2019-01-12] MEDS ORDERED: ACETAMINOPHEN 325MG TABLET PO PRN (21:30)
[2019-01-12] MEDS ORDERED: IPRATROPIUM/ALBUTEROL 0.5-3(2.5)MG/3ML NEB INH PRN (21:30)
[2019-01-13] VITALS (13 sets, daily range): BP systolic 121–176; BP diastolic 75–127
[2019-01-13] MEDS ORDERED: CLONIDINE 0.1MG TABLET PO PRN (04:00)
[2019-01-13 06:59] LABS: BASOPHILS % 1.3 % (0.0-2.0); EOSINOPHILS % 1.9 % (0.0-5.0); HEMATOCRIT. 48.2 % (42.0-52.0); HEMOGLOBIN. 15.1 g/dL (14.0-18.0); LYMPHOCYTES % 35.6 % (20.0-50.0); MEAN CORPUSCULAR VOLUME 89.3 fL (80.0-94.0); MEAN PLATELET VOLUME 8.5 fl (7.4-10.4); MONOCYTES % 7.9 % (2.0-8.0); NEUTROPHILS % 53.3 % (40.0-76.0); PLATELET 203 x1000/uL (130-400); RED BLOOD CELL COUNT 5.39 mill/uL (4.7-6.1); RED CELL DISTRIBUTION WIDTH 19.8 % (11.6-14.6)
[2019-01-13] MEDS ORDERED: METOPROLOL TARTRATE 5MG/5ML VIAL IV SCH (07:15)
[2019-01-13 07:20] LABS: PHOSPHORUS 4.3 mg/dL (2.5-4.9)
[2019-01-13] MEDS: INSULIN LISPRO 100 UNITS/ML SUBCUT SCH ×4 (08:00→21:10)
[2019-01-13] MEDS: BLOOD SUGAR DIAGNOSTIC STRIP TEST SCH ×4 (08:01→21:10)
[2019-01-13] MEDS ORDERED: FUROSEMIDE 40MG/4ML VIAL IV SCH (09:00)
[2019-01-13] MEDS: PANTOPRAZOLE SODIUM 40 MG/VIAL IV SCH (09:03)
[2019-01-13 10:49] LABS: BG BASE EXCESS -4.6 mmol/L (-2.0-2.0); BG CARBOXYHEMOGLOBIN 0.8 % (0.5-1.5); BG DEOXYHEMOGLOBIN 2.7 % (0.0-5.0); BG FRACTION INSPIRED OXYGEN 32; BG HCO3 ACT 17.9 mmol/L (22.0-26.0); BG METHEMOGLOBIN 0.6 % (0.0-1.5); BG OXYGEN SATURATION 97.3 % (92.0-98.5); BG OXYHEMOGLOBIN 95.9 % (94.0-97.0); BG PCO2 27.6 mmHg (35.0-45.0); BG PO2 96.3 mmHg (75.0-100.0); BG SAMPLE SITE RIGHT RADIAL; BG TOTAL HEMOGLOBIN 16.3 g/dL (12.0-18.0); BG VENT MODE NASAL CANNULA
[2019-01-13] MEDS: LOSARTAN POTASSIUM 25 MG TABLET PO SCH (14:02)
[2019-01-13] MEDS: CARVEDILOL 6.25 MG TABLET PO SCH ×2 (14:02→21:02)
[2019-01-13] MEDS: FUROSEMIDE 40MG/4ML VIAL IV SCH (17:29)
[2019-01-13 21:39] LABS: *AMPHETAMINES SCREEN URINE NEGATIVE (NEGATIVE); *BARBITURATES SCREEN URINE NEGATIVE (NEGATIVE)
[2019-01-13 21:40] LABS: *BENZODIAZEPINES SCREEN URINE NEGATIVE (NEGATIVE); *COCAINE SCREEN URINE NEGATIVE (NEGATIVE)
[2019-01-13 21:41] LABS: CANNABINOID URINE SCREEN PRESUMTIVE POSITIVE (NEGATIVE); METHADONE URINE SCREEN NEGATIVE (NEGATIVE); OPIATES URINE SCREEN NEGATIVE (NEGATIVE); PHENCYCLIDINE URINE SCREEN NEGATIVE (NEGATIVE)
[2019-01-14] VITALS (13 sets, daily range): BP systolic 130–161; BP diastolic 75–124
[2019-01-14 06:50] LABS: BASOPHILS % 1.1 % (0.0-2.0); HEMATOCRIT. 46.2 % (42.0-52.0); HEMOGLOBIN. 14.8 g/dL (14.0-18.0); LYMPHOCYTES % 39.2 % (20.0-50.0); MEAN CORPUSCULAR HEMOGLOBIN 28.3 pg (28.0-32.0); MEAN PLATELET VOLUME 8.6 fl (7.4-10.4); MONOCYTES % 9.5 % (2.0-8.0); NEUTROPHILS % 48.2 % (40.0-76.0); PLATELET 184 x1000/uL (130-400); RED BLOOD CELL COUNT 5.25 mill/uL (4.7-6.1); RED CELL DISTRIBUTION WIDTH 19.1 % (11.6-14.6)
[2019-01-14] MEDS: BLOOD SUGAR DIAGNOSTIC STRIP TEST SCH ×4 (07:46→21:00)
[2019-01-14] MEDS: INSULIN LISPRO 100 UNITS/ML SUBCUT SCH ×4 (08:00→21:00)
[2019-01-14] MEDS: FUROSEMIDE 40MG/4ML VIAL IV SCH ×2 (08:46→17:36)
[2019-01-14] MEDS: CARVEDILOL 6.25 MG TABLET PO SCH ×2 (08:46→20:45)
[2019-01-14] MEDS: PANTOPRAZOLE SODIUM 40 MG/VIAL IV SCH (08:46)
[2019-01-14] MEDS: LOSARTAN POTASSIUM 25 MG TABLET PO SCH (08:46)
[2019-01-14] MEDS ORDERED: INFLUENZA VIRUS VACCINE(AFLURIA) 0.5ML SYR IM ONE (14:30)
[2019-01-14] MEDS ORDERED: PNEUMOCOCCAL 23-VAL P-SAC VAC 0.5 ML IM ONE (14:30)
[2019-01-14] MEDS ORDERED: ENOXAPARIN 40MG/0.4ML SYR SUBCUT SCH (15:00)
[2019-01-14] MEDS: LOSARTAN POTASSIUM 50 MG TABLET PO SCH (17:36)
[2019-01-14] MEDS: AMLODIPINE 5MG TABLET PO SCH (20:44)
[2019-01-14] MEDS: ENOXAPARIN 30MG/0.3ML SYR SUBCUT SCH (20:46)
[2019-01-15] VITALS (11 sets, daily range): BP systolic 130–189; BP diastolic 70–116
[2019-01-15 07:14] LABS: BASOPHILS % 1.3 % (0.0-2.0); EOSINOPHILS % 1.7 % (0.0-5.0); HEMATOCRIT. 47.7 % (42.0-52.0); HEMOGLOBIN. 14.9 g/dL (14.0-18.0); MEAN CORPUSCULAR HEMOGLOBIN 27.6 pg (28.0-32.0); MEAN CORPUSCULAR VOLUME 88.2 fL (80.0-94.0); MEAN PLATELET VOLUME 8.7 fl (7.4-10.4); MONOCYTES % 9.6 % (2.0-8.0); NEUTROPHILS % 48.4 % (40.0-76.0); PLATELET 190 x1000/uL (130-400)
[2019-01-15] MEDS: BLOOD SUGAR DIAGNOSTIC STRIP TEST SCH ×2 (07:30→12:30)
[2019-01-15] MEDS: INSULIN LISPRO 100 UNITS/ML SUBCUT SCH ×2 (08:00→12:35)
[2019-01-15] MEDS ORDERED: FAMOTIDINE 20MG TABLET PO SCH (09:00)
[2019-01-15] MEDS: FUROSEMIDE 40MG/4ML VIAL IV SCH (09:47)
[2019-01-15] MEDS: CARVEDILOL 6.25 MG TABLET PO SCH (09:48)
[2019-01-15] MEDS: AMLODIPINE 5MG TABLET PO SCH (09:48)
[2019-01-15] MEDS: ENOXAPARIN 30MG/0.3ML SYR SUBCUT SCH (09:48)
[2019-01-15] MEDS: LOSARTAN POTASSIUM 50 MG TABLET PO SCH (09:48)
== END 2019-01-15 16:00 | disposition home or self-care (01) | DRG 194 ==
LOC: ER 12:24 → 5EST 21:05 → EDBEDREQTM 21:07 → EDBEDREQSVC 21:07 → EDBEDREQ 21:07 → CANRESERV 22:15 → ENRESERV 22:15
PROVIDERS: ADMIT Family Medicine Adult Medicine; ATTEND Family Medicine Adult Medicine
PROC: 5A09357 Assistance with Respiratory Ventilation, Less than 24 Consecutive Hours, Continuous Positive Airway Pressure (ICD-10-PCS; principal; 2019-01-12)
DX: I13.0 Hypertensive heart and chronic kidney disease with heart failure and stage 1 through stage 4 chronic kidney disease, or unspecified chronic kidney disease (principal); J96.00 Acute respiratory failure, unspecified whether with hypoxia or hypercapnia; E46 Unspecified protein-calorie malnutrition; N17.9 Acute kidney failure, unspecified; I50.43 Acute on chronic combined systolic (congestive) and diastolic (congestive) heart failure; E11.22 Type 2 diabetes mellitus with diabetic chronic kidney disease; E11.51 Type 2 diabetes mellitus with diabetic peripheral angiopathy without gangrene; E11.65 Type 2 diabetes mellitus with hyperglycemia; E78.5 Hyperlipidemia, unspecified; F17.210 Nicotine dependence, cigarettes, uncomplicated; R74.8 Abnormal levels of other serum enzymes; R74.0 Nonspecific elevation of levels of transaminase and lactic acid dehydrogenase [LDH]; I34.0 Nonrheumatic mitral (valve) insufficiency; I25.10 Atherosclerotic heart disease of native coronary artery without angina pectoris; I42.9 Cardiomyopathy, unspecified; J44.9 Chronic obstructive pulmonary disease, unspecified; N18.9 Chronic kidney disease, unspecified; Z82.49 Family history of ischemic heart disease and other diseases of the circulatory system; Z83.3 Family history of diabetes mellitus; Z87.01 Personal history of pneumonia (recurrent); Z89.412 Acquired absence of left great toe; Z91.14 Patient's other noncompliance with medication regimen; Z68.35 Body mass index [BMI] 35.0-35.9, adult
CPT/HCPCS: 36415; 36600; 71045; 80048; 80305; 82375; 82805; 82962; 83605; 83735; 83880; 84100; 84484; 90686; 90732; 93005; 93306; 93970; 94660; 96374; 96375; 96376; 97116; 97162; 99291; C9113; J1650; J1815; J1940; J3490

== ENCOUNTER 2019-08-06 18:36 | Inpatient (IN) | payer SELFPAY ==
[~2019-08-06] VITALS: Ht 175.3 cm; Wt 126.6 kg
[2019-08-06 23:01] LABS: CHLORIDE 101 mEq/L (98-107)
[2019-08-06 23:02] LABS: BASOPHILS % 0.8 % (0.0-2.0); EOSINOPHILS % 0.6 % (0.0-5.0); HEMATOCRIT. 51.6 % (42.0-52.0); HEMOGLOBIN. 15.6 g/dL (14.0-18.0); LYMPHOCYTES % 19.5 % (20.0-50.0); MEAN CORPUSCULAR HEMOGLOBIN 27.9 pg (28.0-32.0); MEAN PLATELET VOLUME 9.3 fl (7.4-10.4); MONOCYTES % 6.1 % (2.0-8.0); PLATELET 266 x1000/uL (130-400); RED BLOOD CELL COUNT 5.61 mill/uL (4.7-6.1); RED CELL DISTRIBUTION WIDTH 16.7 % (11.6-14.6)
[2019-08-07] MEDS ORDERED: ALBUTEROL (0.083%) 2.5MG/3ML NEB HHN NR (03:00)
[2019-08-07] MEDS: SODIUM POLYSTYRENE SULFONATE 15 G/60 ML BOT PO NR ×2 (03:38→03:54)
[2019-08-07] MEDS ORDERED: KETOROLAC 30MG/ML VIAL IV PRN (09:30)
[2019-08-07] MEDS ORDERED: ONDANSETRON HCL 4MG/2ML INJ IV PRN (09:30)
[2019-08-07] MEDS ORDERED: ZOLPIDEM TARTRATE 5MG TABLET PO PRN (09:30)
[2019-08-07] MEDS ORDERED: GUAIFENESIN 200MG/10ML SUGAR FREE UDC PO PRN (09:30)
[2019-08-07] MEDS ORDERED: MAGNESIUM/ALUMINUM HYDROXIDE/SIMETHICONE 30ML UDC PO PRN (09:30)
[2019-08-07] MEDS ORDERED: DEXTROSE 50% WATER 50ML SYRINGE IV PRN (09:30)
[2019-08-07] MEDS ORDERED: ACETAMINOPHEN 325MG TABLET PO PRN (09:30)
[2019-08-07] MEDS ORDERED: CLONIDINE 0.1MG TABLET PO PRN (09:30)
[2019-08-07] MEDS ORDERED: IPRATROPIUM/ALBUTEROL 0.5-3(2.5)MG/3ML NEB HHN PRN (09:30)
[2019-08-07] MEDS ORDERED: NITROGLYCERIN 0.4MG TABLET SL SL PRN (09:30)
[2019-08-07] MEDS ORDERED: LORAZEPAM 0.5MG TABLET PO PRN (09:30)
[2019-08-07] MEDS ORDERED: DOCUSATE SODIUM 100MG CAPSULE PO PRN (09:30)
[2019-08-07 10:14] VITALS: BP 146/96
[2019-08-07] MEDS: DUTASTERIDE 0.5MG CAPSULE PO SCH (11:04)
[2019-08-07] MEDS: FUROSEMIDE 100MG/10ML VIAL IVP SCH ×2 (11:04→21:39)
[2019-08-07] MEDS: AMLODIPINE 10MG TABLET PO SCH (11:05)
[2019-08-07] MEDS: ENOXAPARIN 40MG/0.4ML SYR SUBCUT SCH (11:06)
[2019-08-07 12:00] VITALS: BP 132/73
[2019-08-07 12:28] LABS: HEPATITIS B SURFACE ANTIGEN NEGATIVE
[2019-08-07 12:58] LABS: HEPATITIS A AB IGM NEGATIVE (NEGATIVE)
[2019-08-07] MEDS: BLOOD SUGAR DIAGNOSTIC STRIP TEST SCH ×3 (12:58→21:39)
[2019-08-07] MEDS: HYDRALAZINE HCL 50MG TABLET PO SCH ×2 (13:07→21:39)
[2019-08-07] MEDS: INSULIN LISPRO 100 UNITS/ML SUBCUT SCH ×3 (13:13→21:00)
[2019-08-07 16:00] VITALS: BP 138/63
[2019-08-07 16:25] LABS: CREATINE KINASE MB FRACTION 22.4 ng/mL (0.5-3.6)
[2019-08-07] MEDS: CITRIC ACID/SODIUM CITRATE SOLN 15ML UDC PO SCH (17:29)
[2019-08-07 20:19] VITALS: BP 128/87
[2019-08-07] MEDS ORDERED: FAMOTIDINE 20MG TABLET PO SCH (21:00)
[2019-08-07] MEDS: GUAIFENESIN 600MG ER TABLET PO SCH (21:39)
[2019-08-07] MEDS: TAMSULOSIN HCL 0.4MG SR CAPSULE PO SCH (21:39)
[2019-08-07 22:32] LABS: CREATINE KINASE MB FRACTION 22.2 ng/mL (0.5-3.6)
[2019-08-07] MEDS ORDERED: KETOROLAC 15MG/ML VIAL IV PRN (22:45)
[2019-08-08 00:20] VITALS: BP 121/81
[2019-08-08 04:45] VITALS: BP 126/92
[2019-08-08] MEDS: HYDRALAZINE HCL 50MG TABLET PO SCH ×2 (05:43→12:36)
[2019-08-08] MEDS: BLOOD SUGAR DIAGNOSTIC STRIP TEST SCH ×2 (06:51→12:19)
[2019-08-08] MEDS: INSULIN LISPRO 100 UNITS/ML SUBCUT SCH ×2 (07:50→12:39)
[2019-08-08 08:10] LABS: *AMPHETAMINES SCREEN URINE NEGATIVE (NEGATIVE); *BARBITURATES SCREEN URINE NEGATIVE (NEGATIVE); *BENZODIAZEPINES SCREEN URINE NEGATIVE (NEGATIVE); *COCAINE SCREEN URINE NEGATIVE (NEGATIVE); METHADONE URINE SCREEN NEGATIVE (NEGATIVE)
[2019-08-08 08:11] LABS: CANNABINOID URINE SCREEN PRESUMTIVE POSITIVE (NEGATIVE); OPIATES URINE SCREEN NEGATIVE (NEGATIVE); PHENCYCLIDINE URINE SCREEN NEGATIVE (NEGATIVE)
[2019-08-08] MEDS ORDERED: ASPIRIN 325MG EC TABLET PO SCH (09:00)
[2019-08-08] MEDS: ENOXAPARIN 40MG/0.4ML SYR SUBCUT SCH (09:17)
[2019-08-08] MEDS: AMLODIPINE 10MG TABLET PO SCH (09:18)
[2019-08-08] MEDS: DUTASTERIDE 0.5MG CAPSULE PO SCH (09:18)
[2019-08-08] MEDS: GUAIFENESIN 600MG ER TABLET PO SCH (09:19)
[2019-08-08] MEDS: TAMSULOSIN HCL 0.4MG SR CAPSULE PO SCH (09:19)
[2019-08-08] MEDS: FUROSEMIDE 100MG/10ML VIAL IVP SCH (09:19)
[2019-08-08] MEDS: CITRIC ACID/SODIUM CITRATE SOLN 15ML UDC PO SCH ×2 (09:19→12:35)
[2019-08-08 10:52] VITALS: BP 147/90
== END 2019-08-08 14:16 | disposition home or self-care (01) | DRG 194 ==
LOC: ER 18:36 → EDBEDREQ 08-07 03:11 → EDBEDREQTM 08-07 03:11 → 6WST 08-07 03:16 → EDBEDREQ 08-07 03:20 → ENRESERV 08-07 07:04
PROVIDERS: ADMIT Internal Medicine; ATTEND Internal Medicine
DX: I13.0 Hypertensive heart and chronic kidney disease with heart failure and stage 1 through stage 4 chronic kidney disease, or unspecified chronic kidney disease (principal); N17.0 Acute kidney failure with tubular necrosis; E11.22 Type 2 diabetes mellitus with diabetic chronic kidney disease; E44.0 Moderate protein-calorie malnutrition; E87.1 Hypo-osmolality and hyponatremia; I50.30 Unspecified diastolic (congestive) heart failure; K76.1 Chronic passive congestion of liver; E87.5 Hyperkalemia; M10.9 Gout, unspecified; N18.9 Chronic kidney disease, unspecified; J44.9 Chronic obstructive pulmonary disease, unspecified; Z79.4 Long term (current) use of insulin; Z68.41 Body mass index [BMI] 40.0-44.9, adult
CPT/HCPCS: 36415; 71045; 76770; 80048; 80061; 80305; 82550; 82553; 82962; 83036; 83880; 84484; 86705; 86709; 86803; 87340; 93005; 93970; 94640; 99285; J1650; J1815; J1885; J1940; J7611